=== PATIENT | female | born 1995 | race Caucasian/White ===

== ENCOUNTER 2018-04-27 11:48 | Emergency (ER) | payer OTHER ==
[~2018-04-27] VITALS: Ht 167.6 cm; Wt 55.7 kg
[2018-04-27 11:53] VITALS: BP 144/86; PULSE 81; RESP 20; Ht 167.6 cm; Wt 55.7 kg
--- NOTE | 2018-04-27 14:44 | ERD ---
ER Documentation Chief Complaint Chief Complaint Complains of redness or bruising in the extremities hx of anemia HPI 23-year-old female with history of anemia presents with complaint of bruising on her legs. States that she went to urgent care this morning and then performed some blood work that she has not received the results yet and is anxious as to the cause. In addition she states that the doctor there told her that she had a murmur and she would need to get an echo. Denies shortness of breath, chest pain, diaphoresis, dizziness, easy bleeding. Used to take iron to treat the anemia but is no longer taking it. States she has heavy periods going through 6 tampons a day for an average of 8 days per cycle. Denies allergies. Denies medications. Denies surgeries. Denies alcohol, tobacco, drug use. Up to date on vaccines. ROS All systems reviewed and are negative except as per history of present illness. FmHx Family History: No diabetes, No coronary disease, No other Physical Exam Vitals Vital Signs Date Temp Pulse Resp B/P (MAP) Pulse Ox O2 O2 Flow FiO2 Time Delivery Rate 04/27/18 99.1 81 20 144/86 99 11:53 (105) Physical Exam Const: No acute distress Head: Atraumatic Eyes: Normal Conjunctiva ENT: Normal External Ears, Nose and Mouth. Neck: Full range of motion. No meningismus. Resp: Clear to auscultation bilaterally Cardio: Regular rate and rhythm, no murmurs Abd: Soft, non tender, non distended. Normal bowel sounds Skin: No petechiae or rashes Back: No midline or flank tenderness Ext: No cyanosis, or edema Neur: Awake and alert Psych: Normal Mood and Affect Result Diagram: 04/27/18 1449 Results 24 hrs Laboratory Tests Test 04/27/18 14:49 White Blood Count 9.0 10^3/ul Red Blood Count 5.01 10^6/ul Hemoglobin 14.0 g/dl Hematocrit 43.3 % Mean Corpuscular Volume 86.4 fl Mean Corpuscular Hemoglobin 27.9 pg Mean Corpuscular Hemoglobin Concent 32.3 g/dl Red Cell Distribution Width 12.7 % Platelet Count 349 10^3/UL Mean Platelet Volume 9.7 fl Immature Granulocytes % 0.400 % Neutrophils % 70.6 % Lymphocytes % 23.5 % Monocytes % 4.1 % Eosinophils % 0.6 % Basophils % 0.8 % Nucleated Red Blood Cells % 0.0 /100WBC Immature Granulocytes # 0.040 10^3/ul Neutrophils # 6.3 10^3/ul Lymphocytes # 2.1 10^3/ul Monocytes # 0.4 10^3/ul Eosinophils # 0.1 10^3/ul Basophils # 0.1 10^3/ul Nucleated Red Blood Cells # 0.0 10^3/ul Prothrombin Time 13.5 Sec Prothrombin Time Ratio 1.1 INR International Normalized Ratio 1.02 Activated Partial Thromboplast Time 27.8 Sec Procedures/MDM ER course: CBC, CMP,PT, PTT, EKG -results within normal limits EKG: Rate/Rhythm: Normal Sinus Rhythm QRS, ST, T-waves: No changes consistent w/ acute ischemia Impression: No evidence of ischemia or arrhythmia 23-year-old female with history of anemia presents with complaint of bruising on her legs. States that she went to urgent care this morning and then performed some blood work that she has not received the results yet and is anxious as to the cause. In addition she states that the doctor there told her that she had a murmur and she would need to get an echo. Denies shortness of breath, chest pain, diaphoresis, dizziness, easy bleeding. Used to take iron to treat the anemia but is no longer taking it. States she has heavy periods going through 6 tampons a day for an average of 8 days per cycle. All labs are within normal limits. In addition, the murmur that the patient stated that her doctor told her she had this morning was not heard during my physical exam. Low suspicion for symptomatic anemia, coagulopathy, emergent valve disorder, or other emergent condition. Patient was advised to follow-up with biomedical scientist due to her doctors findings on physical exam this morning. Patient discharged with strict ER precautions. Patient advised to follow up with PMD. All questions answered at discharge. Departure Condition: Stable KATHERINE ROJAS Apr 27, 2018 14:44
== END 2018-04-27 15:46 | disposition home or self-care (01) ==
LOC: FTE 11:48
DX: S80.10XA Contusion of unspecified lower leg, initial encounter (principal); X58.XXXA Exposure to other specified factors, initial encounter; Y92.9 Unspecified place or not applicable
CPT/HCPCS: 85025; 85610; 85730; 93005